=== PATIENT | female | born 1995 | race Caucasian/White ===

== ENCOUNTER 2016-09-28 18:46 | Emergency (ER) | payer OTHER ==
[2016-09-28 19:24] VITALS: BP 111/79; PULSE 84; RESP 16; TEMP 98.4
--- NOTE | 2016-09-28 20:09 | ED ---
ENT HPI - General Chief complaint: Dental/Oral Stated complaint: Tooth pain Time Seen by Provider: 09/28/16 19:27 Source: patient, RN notes reviewed, old records reviewed Mode of arrival: ambulatory Limitations: no limitations - History of Present Illness Initial comments: This is a 21 year old female with bilateral lower wisdom tooth and molar pain. Patient reports that she feels like her molars are coming in and the gums are inflammed around them.Denies fever or chills. States she plans to see a dentist. - Related Data Home Medications Medication Instructions Recorded Confirmed Biotin 5 mg PO DAILY 09/28/16 09/28/16 [place]-3 Fatty Acids/Fish Oil [Fish 1 cap PO DAILY 09/28/16 09/28/16 Oil 1,000 mg Capsule] Previous Rx's Medication Instructions Recorded Penicillin V Potassium [Pen Vee K] 500 mg PO QID #28 tab 09/28/16 traMADol HCl [Ultram] 50 mg PO Q6H PRN #15 tab 09/28/16 Allergies Allergy/AdvReac Type Severity Reaction Status Date / Time [place] And Derivatives Allergy Rash/Hives Verified 09/28/16 19:23 Review of Systems ROS Statement: Those systems with pertinent positive or pertinent negative responses have been documented in the HPI. ROS Other: All systems not noted in ROS Statement are negative. Constitutional: Denies: fever, chills Eyes: Denies: eye pain ENT: Reports: dental pain. Denies: throat pain Respiratory: Denies: cough Cardiovascular: Denies: chest pain Genitourinary: Reports: as per HPI. Denies: urgency Musculoskeletal: Denies: back pain Skin: Denies: rash Neurological: Denies: headache Past Medical History Additional Past Medical History / Comment(s): blood disorder, ovarian cysts History of Any Multi-Drug Resistant Organisms: None Reported Past Surgical History: No Surgical Hx Reported Past Psychological History: Anxiety Smoking Status: Current some day smoker Past Alcohol Use History: None Reported Past Drug Use History: Marijuana General Exam - General Exam Comments Initial Comments: Well appearing 21 year old female, no distress. Limitations: no limitations General appearance: alert, in no apparent distress Head exam: Present: atraumatic, normocephalic, normal inspection Eye exam: Present: normal appearance, PERRL, EOMI. Absent: scleral icterus, conjunctival injection, periorbital swelling ENT exam: Present: normal exam, mucous membranes moist, other (infammed gums around both lower wisdome teeth. ) Neck exam: Present: normal inspection. Absent: tenderness, meningismus, lymphadenopathy Respiratory exam: Present: normal lung sounds bilaterally. Absent: respiratory distress, wheezes, rales, rhonchi, stridor Cardiovascular Exam: Present: regular rate, normal rhythm, normal heart sounds. Absent: systolic murmur, diastolic murmur, rubs, gallop, clicks Neurological exam: Present: alert, oriented X3, CN II-XII intact Psychiatric exam: Present: normal affect, normal mood Skin exam: Present: warm, dry, intact, normal color. Absent: rash Course Vital Signs 09/28/16 19:21 Temperature 98.4 F Pulse Rate 84 Respiratory 16 Rate Blood Pressure 111/79 O2 Sat by Pulse 100 Oximetry Medical Decision Making - Medical Decision Making This is a 21 year old female with bilateral lower wisdom tooth and molar pain. Patient reports that she feels like her molars are coming in and the gums are inflammed around them.Denies fever or chills. States she plans to see a dentist. Patient does have area of erythema around wisdome teeth. Started on pen vk, and tramadol for pain. Patient given name and number for dentist. Patient understands treatment plan and will comply. Disposition Clinical Impression: Pain, dental Disposition: HOME SELF-CARE Condition: Good Instructions: Toothache (ED) Additional Instructions: [facility] [address] [place] [address] [phone] (existing clients only) For new clients: [phone] 1st consult: $50 (includes Xrays) Usually 30% less then private dentist for visits after. [employer] Have to pay $50 for Xrays anmd rest is covered. [phone] Prescriptions: Penicillin V Potassium [Pen Vee K] 500 mg PO QID #28 tab traMADol HCl [Ultram] 50 mg PO Q6H PRN #15 tab PRN Reason: Pain Referrals: Tim Salcedo MD [Primary Care Provider] - 1-2 days Filiberto Peck DDS [STAFF PHYSICIAN] - 1-2 days Time of Disposition: 20:06
== END 2016-09-28 20:18 | disposition home or self-care (01) ==
LOC: EC 18:46
DX: K08.89 Other specified disorders of teeth and supporting structures (principal); F17.200 Nicotine dependence, unspecified, uncomplicated; Z88.8 Allergy status to other drugs, medicaments and biological substances; Z79.899 Other long term (current) drug therapy
CPT/HCPCS: 99282

== ENCOUNTER 2016-11-03 20:12 | Emergency (ER) | payer OTHER ==
[2016-11-03 20:30] VITALS: BP 107/82; PULSE 101; RESP 20; TEMP 98.2
--- NOTE | 2016-11-03 20:37 | ED ---
ENT HPI - General Chief complaint: Dental/Oral Stated complaint: dental pain Time Seen by Provider: 11/03/16 20:28 Source: patient, RN notes reviewed, old records reviewed Mode of arrival: ambulatory - History of Present Illness Initial comments: 21-year-old female presenting the chief complaint of molar pain for the past few months. Patient was seen originally by myself and was put on tramadol and antibiotics. He reports that she's been taking this medication as prescribed. She also saw her primary care doctor in the interim before seeing her [facility] any [facility] until she sees the dental clinic. Patient reports she cannot see the dentist until November where she'll have her molars and wisdom teeth removed. Patient reports that they're coming through and causing some swelling and irritation over the gums. She denies any drainage or fever or swelling of her face. She denies any difficulty opening or closing her mouth or any other symptoms. - Related Data Home Medications Medication Instructions Recorded Confirmed Biotin 5 mg PO DAILY 09/28/16 09/28/16 [place]-3 Fatty Acids/Fish Oil [Fish 1 cap PO DAILY 09/28/16 09/28/16 Oil 1,000 mg Capsule] Previous Rx's Medication Instructions Recorded Penicillin V Potassium [Pen Vee K] 500 mg PO QID #28 tab 09/28/16 traMADol HCl [Ultram] 50 mg PO Q6H PRN #15 tab 09/28/16 traMADol HCl [Ultram] 50 mg PO Q6H PRN #15 tab 11/03/16 Allergies Allergy/AdvReac Type Severity Reaction Status Date / Time [place] And Derivatives Allergy Rash/Hives Verified 09/28/16 19:23 Review of Systems ROS Statement: Those systems with pertinent positive or pertinent negative responses have been documented in the HPI. ROS Other: All systems not noted in ROS Statement are negative. Past Medical History Additional Past Medical History / Comment(s): blood disorder, ovarian cysts History of Any Multi-Drug Resistant Organisms: None Reported Past Surgical History: No Surgical Hx Reported Past Psychological History: Anxiety Smoking Status: Former smoker Past Alcohol Use History: None Reported, Occasional Past Drug Use History: None Reported General Exam - General Exam Comments Initial Comments: 21-year-old female. No acute distress. General appearance: alert, in no apparent distress Head exam: Present: atraumatic, normocephalic, normal inspection Eye exam: Present: normal appearance, PERRL, EOMI. Absent: scleral icterus, conjunctival injection, periorbital swelling ENT exam: Present: normal exam, mucous membranes moist, TM's normal bilaterally. Absent: normal oropharynx (poor dentition. Patient ) Neck exam: Present: normal inspection Respiratory exam: Present: normal lung sounds bilaterally. Absent: respiratory distress, wheezes, rales, rhonchi, stridor Cardiovascular Exam: Present: regular rate, normal rhythm, normal heart sounds. Absent: systolic murmur, diastolic murmur, rubs, gallop, clicks GI/Abdominal exam: Present: soft, normal bowel sounds. Absent: distended, tenderness, guarding, rebound, rigid Extremities exam: Present: normal inspection, full ROM, normal capillary refill. Absent: tenderness, pedal edema, joint swelling, calf tenderness Back exam: Present: normal inspection Neurological exam: Present: alert, oriented X3, CN II-XII intact Psychiatric exam: Present: normal affect, normal mood Skin exam: Present: warm, dry, intact, normal color. Absent: rash Course Vital Signs 11/03/16 20:21 Temperature 98.2 F Pulse Rate 101 H Respiratory 20 Rate Blood Pressure 107/82 O2 Sat by Pulse 100 Oximetry Medical Decision Making - Medical Decision Making 21-year-old female presenting the chief complaint of molar pain for the past few months. Patient was seen originally by myself and was put on tramadol and antibiotics. He reports that she's been taking this medication as prescribed. She also saw her primary care doctor in the interim before seeing her dental surgeon. [facility] primary care will not provide her any pain medication until she sees the dental clinic. Patient will be given a short prescription of tramadol. Discussed putting Orajel to reduce as well as teabags. No signs of infection at this time. Patient advised to follow-up with primary care provider and dental instructions were given. Patient understands treatment plan will comply. Disposition Clinical Impression: Pain, dental Disposition: HOME SELF-CARE Condition: Good Instructions: Toothache (ED) Additional Instructions: Follow-up with dental appointment. Return to the emergency department if any alarming signs or symptoms occur. Prescriptions: traMADol HCl [Ultram] 50 mg PO Q6H PRN #15 tab PRN Reason: Pain Referrals: Tim Salcedo MD [Primary Care Provider] - 1-2 days Time of Disposition: 20:36
== END 2016-11-03 20:52 | disposition home or self-care (01) ==
LOC: EC 20:12
DX: K08.89 Other specified disorders of teeth and supporting structures (principal); Z87.891 Personal history of nicotine dependence; Z79.899 Other long term (current) drug therapy; Z91.048 Other nonmedicinal substance allergy status
CPT/HCPCS: 99283

== ENCOUNTER 2017-02-21 19:14 | Emergency (ER) | payer OTHER ==
[2017-02-21 19:59] VITALS: BP 128/80; PULSE 100; RESP 18; TEMP 97.5
--- NOTE | 2017-02-21 20:14 | ED ---
ENT HPI - General Chief complaint: Dental/Oral Stated complaint: DENTAL PAIN Time Seen by Provider: 02/21/17 19:54 Source: patient, RN notes reviewed Mode of arrival: ambulatory Limitations: no limitations - History of Present Illness Initial comments: This is a 21-year-old female who presents to the emergency department with request for refill of medication. Patient states that she has been taking Ultram for dental pain as her wisdom teeth have been coming in. She states that she has poor medical insurance but was able to find oral surgeon to remove her wisdom teeth. She states that in 2 weeks she has a consultation with oral surgery. She states that she is in a significant amount of pain and is experiencing bleeding from the gums where teeth are coming in. Denies fever, chills, chest pain, shortness of breath, abdominal pain, nausea or vomiting, constipation or diarrhea, dysuria or hematuria, numbness or tingling, headache or vision changes. - Related Data Home Medications Medication Instructions Recorded Confirmed Biotin 5 mg PO DAILY 09/28/16 09/28/16 [place]-3 Fatty Acids/Fish Oil [Fish 1 cap PO DAILY 09/28/16 09/28/16 Oil 1,000 mg Capsule] Previous Rx's Medication Instructions Recorded Penicillin V Potassium [Pen Vee K] 500 mg PO QID #28 tab 09/28/16 traMADol HCl [Ultram] 50 mg PO Q6H PRN #15 tab 09/28/16 traMADol HCl [Ultram] 50 mg PO Q6H PRN #15 tab 11/03/16 traMADol HCL [Ultram] 50 mg PO Q4HR PRN #30 tab 02/21/17 Allergies Allergy/AdvReac Type Severity Reaction Status Date / Time [place] And Derivatives Allergy Rash/Hives Verified 02/21/17 19:58 Review of Systems ROS Statement: Those systems with pertinent positive or pertinent negative responses have been documented in the HPI. ROS Other: All systems not noted in ROS Statement are negative. Past Medical History Additional Past Medical History / Comment(s): blood disorder, ovarian cysts History of Any Multi-Drug Resistant Organisms: None Reported Past Surgical History: No Surgical Hx Reported Past Psychological History: Anxiety Smoking Status: Former smoker Past Alcohol Use History: None Reported, Occasional Past Drug Use History: None Reported General Exam - General Exam Comments Initial Comments: General: Awake and alert, well-developed; in no apparent distress. pleasant and cooperative. HEENT: Head atraumatic, normocephalic. Pupils are equal, round and reactive to light. Extraocular movements intact. Oropharynx moist without erythema or exudate. Evidence of wisdom teeth protruding. Neck: Supple. Normal ROM. No adenopathy. Cardiovascular: Regular rate and rhythm. No murmurs, rubs or gallops. Chest symmetrical. Respiratory: Lungs clear to auscultation bilaterally. No wheezes, rales or rhonchi. Normal respiratory effort with no use of accessory muscles. Skin: [place], warm and dry without rashes or lesions. Neurological: Alert and oriented x3. CN II-XII grossly intact. Speech is fluent and answers are appropriate. No focal neuro deficits. Psychiatric: Normal mood and affect. No overt signs of depression or anxiety noted. Limitations: no limitations Course Vital Signs 02/21/17 19:56 Temperature 97.5 F L Pulse Rate 100 Respiratory 18 Rate Blood Pressure 128/80 O2 Sat by Pulse 100 Oximetry Medical Decision Making - Medical Decision Making This is a 21-year-old female who presents with request for medication refill. She's been taking Ultram 50 mg twice a day for pain until she is able to follow- up with an oral surgeon for removal of wisdom teeth. She'll be discharged home with a prescription to last her the next couple of weeks until she is able to follow-up. Patient is in agreement and voices understanding. all questions answered. Disposition Clinical Impression: Encounter for medication refill Disposition: HOME SELF-CARE Condition: Good Instructions: Toothache (ED) Additional Instructions: Please take medications as prescribed. Please follow up with primary care provider within 1-2 days. Return to emergency department if symptoms should worsen or any concerns arise. Prescriptions: traMADol HCL [Ultram] 50 mg PO Q4HR PRN #30 tab PRN Reason: Pain Referrals: Tim Salcedo MD [Primary Care Provider] - 1-2 days Time of Disposition: 20:13
== END 2017-02-21 20:18 | disposition home or self-care (01) ==
LOC: EC 19:14
DX: Z76.0 Encounter for issue of repeat prescription (principal); K08.89 Other specified disorders of teeth and supporting structures; Z87.891 Personal history of nicotine dependence; Z79.899 Other long term (current) drug therapy; Z91.018 Allergy to other foods
CPT/HCPCS: 99282

== ENCOUNTER 2017-03-12 20:08 | Emergency (ER) | payer OTHER ==
[2017-03-12] MEDS ORDERED: ALBUTEROL NEBULIZED 2.5 MG/3 ML INHALATION STA (20:19)
[2017-03-12 20:29] VITALS: BP 126/84; PULSE 70; RESP 16; TEMP 97.6
--- NOTE | 2017-03-12 20:44 | ED ---
ENT HPI - General Chief complaint: Dental/Oral Stated complaint: Dental Pain Time Seen by Provider: 03/12/17 20:18 Source: patient Mode of arrival: ambulatory Limitations: no limitations - History of Present Illness Initial comments: Patient is a 21-year-old female presenting to the emergency department with chief complaint of toothache to the wisdom tooth #32 and wisdom tooth #17. Patient is currently taking Ultram for pain relief which she states is the only thing working. Patient has tried Tylenol and Motrin without relief. Patient states her toothache is exacerbated with eating. Patient complains of intermittent bleeding gums. Patient states she had an appointment with an oral surgeon in [place] last week only to find out he didn't take her insurance. Patient states is in the process of transitioning between primary care physicians. Patient denies chills, fevers, nausea, vomiting, gum swelling , facial swelling, trismus, earache, shortness of breath, chest pain, or abdominal pain. - Related Data Home Medications Medication Instructions Recorded Confirmed Biotin 5 mg PO DAILY 09/28/16 09/28/[address] [place]-3 Fatty Acids/Fish Oil [Fish 1 cap PO DAILY 09/28/16 09/28/16 Oil 1,000 mg Capsule] Previous Rx's Medication Instructions Recorded Penicillin V Potassium [Pen Vee K] 500 mg PO QID #28 tab 09/28/16 traMADol HCl [Ultram] 50 mg PO Q6H PRN #15 tab 09/28/16 traMADol HCl [Ultram] 50 mg PO Q6H PRN #15 tab 11/03/16 traMADol HCL [Ultram] 50 mg PO Q4HR PRN #30 tab 02/21/17 traMADol HCL [Ultram] 50 mg PO Q12H PRN #20 tab 03/12/17 Allergies Allergy/AdvReac Type Severity Reaction Status Date / Time [place] And Derivatives Allergy Rash/Hives Verified 03/12/17 20:15 Review of Systems ROS Statement: Those systems with pertinent positive or pertinent negative responses have been documented in the HPI. ROS Other: All systems not noted in ROS Statement are negative. Past Medical History Additional Past Medical History / Comment(s): blood disorder, ovarian cysts, cervical pre-cancer cells History of Any Multi-Drug Resistant Organisms: None Reported Past Surgical History: No Surgical Hx Reported Past Psychological History: Anxiety Smoking Status: Former smoker Past Alcohol Use History: None Reported, Occasional Past Drug Use History: None Reported, Marijuana General Exam Limitations: no limitations General appearance: alert, in no apparent distress Head exam: Present: atraumatic, normocephalic, normal inspection Eye exam: Present: normal appearance ENT exam: Present: mucous membranes moist, TM's normal bilaterally, normal external ear exam Expanded Ear exam: Present: normal external inspection Mouth exam: Present: normal external inspection. Absent: drooling, trismus, muffled voice, tongue normal, tongue elevation Teeth exam: Present: dental tenderness # (Tooth #32 and tooth #17), other (No evidence of swollen gums). Absent: gingival enlargement Throat exam: normal inspection. negative: tonsillar erythema, tonsillomegaly, tonsillar exudate, R peritonsillar mass, L peritonsillar mass Neck exam: Present: normal inspection, full ROM. Absent: tenderness, meningismus, lymphadenopathy Respiratory exam: Present: normal lung sounds bilaterally. Absent: respiratory distress, wheezes, rales, rhonchi, stridor, chest wall tenderness Cardiovascular Exam: Present: regular rate, normal rhythm, normal heart sounds. Absent: systolic murmur GI/Abdominal exam: Present: soft, normal bowel sounds. Absent: distended, tenderness Extremities exam: Present: normal inspection, normal capillary refill. Absent: full ROM, tenderness Neurological exam: Present: alert, oriented X3, CN II-XII intact, normal gait. Absent: motor sensory deficit Psychiatric exam: Present: normal affect, normal mood. Absent: anxious Skin exam: Present: warm, dry, intact, normal color Course Vital Signs 03/12/17 20:15 Temperature 97.6 F Pulse Rate 70 Respiratory 16 Rate Blood Pressure 126/84 O2 Sat by Pulse 100 Oximetry Medical Decision Making - Medical Decision Making Toothache without evidence of dental infection. Patient provided with refill on tramadol and instructed to follow-up at the dental clinic. Patient is aware that the emergency department will no longer be able to refill tramadol and she needs to establish a primary care provider for further refills. Patient agrees with treatment plan. Patient instructed to return to the emergency department with any new or worsening symptoms. Disposition Clinical Impression: Toothache Disposition: HOME SELF-CARE Condition: Good Instructions: Toothache (ED) Additional Instructions: Continue Ultram twice daily as needed for pain. Continue heat or cold for pain as needed two. Please follow-up with dental clinic in next 48-72 hours. Follow -up with primary care provider as directed. Please return to the emergency department with any new or worsening symptoms. Prescriptions: traMADol HCL [Ultram] 50 mg PO Q12H PRN #20 tab PRN Reason: Pain Referrals: Tim Salcedo MD [Primary Care Provider] - 1-2 days Time of Disposition: 20:44
== END 2017-03-12 20:50 | disposition home or self-care (01) ==
LOC: EC 20:08
DX: K08.89 Other specified disorders of teeth and supporting structures (principal); Z79.899 Other long term (current) drug therapy; Z91.018 Allergy to other foods; Z87.891 Personal history of nicotine dependence
CPT/HCPCS: 99282

== ENCOUNTER 2017-07-12 18:30 | Emergency (ER) | payer OTHER ==
[2017-07-12 19:22] VITALS: BP 111/76; PULSE 78; RESP 18; TEMP 97.9
--- NOTE | 2017-07-12 19:40 | ED ---
Upper Extremity HPI - General Chief Complaint: Extremity Injury, Upper Stated Complaint: Arm/hand/shoulder pain Time Seen by Provider: 07/12/17 19:27 Source: patient Mode of arrival: ambulatory Limitations: no limitations - History of Present Illness Initial Comments: This patient is a 21-year-old female presents emergency room states she'll complain of right arm pain for 2 weeks. She reports having this pain and is worse with her working. 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 She is right-handed. Denies any coolness to the extremity. She she's had no falls or trauma to the arm. She states the pain radiate from her right shoulder down her fingertips occasionally. She states that she has full range of motion in her extremities.Patient denies any recent fever, chills, shortness of breath, chest pain, back pain, abdominal pain, nausea vomiting, numbness or tingling, dysuria or hematuria, constipation or diarrhea, headaches or visual changes, or any other current symptoms - Related Data Previous Rx's Medication Instructions Recorded Cyclobenzaprine [Flexeril] 10 mg PO TID #12 tab 07/12/17 Dexamethasone 0.75 mg PO DAILY #12 tab 07/12/17 Ketorolac [Toradol] 10 mg PO Q6HR #12 tab 07/12/17 Allergies Allergy/AdvReac Type Severity Reaction Status Date / Time [place] And Derivatives Allergy Rash/Hives Verified 07/12/17 19:28 Review of Systems ROS Statement: Those systems with pertinent positive or pertinent negative responses have been documented in the HPI. ROS Other: All systems not noted in ROS Statement are negative. Past Medical History Additional Past Medical History / Comment(s): blood disorder, ovarian cysts History of Any Multi-Drug Resistant Organisms: None Reported Past Surgical History: No Surgical Hx Reported Additional Past Surgical History / Comment(s): wisdom teeth Past Psychological History: Anxiety Smoking Status: Never smoker Past Alcohol Use History: Occasional Past Drug Use History: None Reported General Exam - General Exam Comments Initial Comments: She is a 21-year-old female. No distress. Limitations: no limitations General appearance: alert, in no apparent distress Head exam: Present: atraumatic, normocephalic, normal inspection Eye exam: Present: normal appearance, PERRL, EOMI. Absent: scleral icterus, conjunctival injection, periorbital swelling ENT exam: Present: normal exam Neck exam: Present: normal inspection. Absent: tenderness, meningismus, lymphadenopathy Respiratory exam: Present: normal lung sounds bilaterally. Absent: respiratory distress, wheezes, rales, rhonchi, stridor Cardiovascular Exam: Present: regular rate, normal rhythm, normal heart sounds. Absent: systolic murmur, diastolic murmur, rubs, gallop, clicks GI/Abdominal exam: Present: soft, normal bowel sounds. Absent: distended, tenderness, guarding, rebound, rigid Extremities exam: Present: normal inspection, full ROM, normal capillary refill. Absent: tenderness, pedal edema, joint swelling, calf tenderness Right Shoulder Exam: Present: normal inspection, tenderness (Tenderness over the insertion of biceps tendon.). Absent: full ROM (Patient has limited posterior rotation of the shoulder with Apley scratch test.), swelling, abrasion, laceration, ecchymosis, deformity Upper Arm exam: Present: normal inspection, full ROM Elbow exam: Present: normal inspection, full ROM Forearm Wrist exam: Present: normal inspection, full ROM Hand Wrist exam: Present: normal inspection, full ROM Neuro motor exam: Present: wrist extension intact, thumb opposition intact, thumb IP flexion intact, thumb adduction intact, fingers 2-5 abduction intact Back exam: Present: normal inspection Neurological exam: Present: alert, oriented X3, CN II-XII intact Psychiatric exam: Present: normal affect, normal mood Skin exam: Present: warm, dry, intact, normal color. Absent: rash Course Vital Signs 07/12/17 19:19 Temperature 97.9 F Pulse Rate 78 Respiratory 18 Rate Blood Pressure 111/76 O2 Sat by Pulse 100 Oximetry Medical Decision Making - Medical Decision Making This patient is wearing a female chief complaint of right arm pain. She reports that the source of the past 2 weeks. 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 She is tender over the head of the biceps. The patient has a biceps tendinitis related to her pain. It is not getting any better with her continuing to move the arm while at work. He states that she needs to ice and take anti- inflammatory medicine. Discussed appropriate follow-up with orthopedic. Discussed that she does not need any imaging studies at this time and she has full range of motion, no trauma or bruising or any other abnormality's arm. She 'll be discharged with anti-inflammatory medication. Discussed follow-up with PCP in orthopedic. All questions were answered and return parameters were discussed. Disposition Clinical Impression: Right arm pain, Biceps tendinitis of left upper extremity Disposition: HOME SELF-CARE Condition: Good Instructions: Arm Pain (ED) Additional Instructions: Patient is to rest, ice, and elevate the arm. Patient should also apply icy hot patches. Take anti-inflammatory medications as prescribed. Return to emergency department if any alarming signs or symptoms occur. Follow up with orthopedic if symptoms are continuing to persist. Prescriptions: Cyclobenzaprine [Flexeril] 10 mg PO TID #12 tab Dexamethasone 0.75 mg PO DAILY #12 tab Ketorolac [Toradol] 10 mg PO Q6HR #12 tab Referrals: Tim Salcedo MD [Primary Care Provider] - 1-2 days Time of Disposition: 19:36
== END 2017-07-12 19:49 | disposition home or self-care (01) ==
LOC: EC 18:30
DX: M75.21 Bicipital tendinitis, right shoulder (principal); Z91.018 Allergy to other foods
CPT/HCPCS: 99283

== ENCOUNTER 2017-10-05 18:26 | Emergency (ER) | payer OTHER ==
[2017-10-05 20:18] LABS: Appearance,Urine Clear (Clear); Bilirubin,Urine Negative (Negative); Blood,Urine Negative (Negative); Color,Urine Yellow; Glucose,Urine (UA) Negative (Negative); Ketones,Urine Negative (Negative); Leukocyte Esterase,Urine Negative (Negative); Mucus,Urine Occasional /hpf; Nitrite,Urine Negative (Negative); Protein,Urine 1+ (Negative); RBC,Urine 1 /hpf (0-5); Specific Gravity,Urine 1.023 (1.001-1.035); Squamous Epithelial Cell,Urine <1 /hpf (0-4); WBC,Urine 1 /hpf (0-5)
[2017-10-05] MEDS ORDERED: traMADol 50 MG STARTER PACK 3 TAB BTL PO STA (20:33)
--- NOTE | 2017-10-05 20:33 | ED ---
General Adult HPI - General Chief complaint: Recheck/Abnormal Lab/Rx Stated complaint: HSP FLARE Time Seen by Provider: 10/05/17 19:25 Source: patient Mode of arrival: wheelchair Limitations: no limitations - History of Present Illness Initial comments: 22-year-old female patient presents to the emergency department today for evaluation of left knee pain and bilateral foot pain. 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 Patient states that generally involves joint pain and bruising. Patient states she has bruising to her bilateral feet without known injury. Patient states that she works on her feet and does have increased pain related to this as well. Patient is requesting tramadol for her pain symptoms. States that she does not currently have a primary care physician and has been told that she needs a follow-up with the animal stunner but she has not yet done so. She denies any fevers or chills. Denies any recent illness. Denies any flank pain , abdominal pain, nausea, or vomiting. Patient denies any recent rash, shortness breath, chest pain, diarrhea, constipation, back pain, numbness, tingling, dizziness, weakness, hematuria, dysuria, urinary urgency, urinary frequency, headache, visual changes, or any other complaints. - Related Data Home Medications Medication Instructions Recorded Confirmed Multivitamins, Thera [Multivitamin 1 tab PO DAILY 10/05/17 10/05/17 (formulary)] [place]-3 Fatty Acids/Fish Oil [Fish 1 cap PO DAILY 10/05/17 10/05/17 Oil 1,000 mg Softgel] Previous Rx's Medication Instructions Recorded predniSONE 50 mg PO DAILY #5 tab 10/05/17 Allergies Allergy/AdvReac Type Severity Reaction Status Date / Time [place] And Derivatives Allergy Rash/Hives Verified 10/05/17 19:00 Review of Systems ROS Statement: Those systems with pertinent positive or pertinent negative responses have been documented in the HPI. ROS Other: All systems not noted in ROS Statement are negative. Past Medical History Additional Past Medical History / Comment(s): blood disorder, ovarian cysts History of Any Multi-Drug Resistant Organisms: None Reported Past Surgical History: No Surgical Hx Reported Additional Past Surgical History / Comment(s): wisdom teeth Past Psychological History: Anxiety Smoking Status: Current some day smoker Past Alcohol Use History: Occasional, Rare Past Drug Use History: None Reported General Exam Limitations: no limitations General appearance: alert, in no apparent distress, other (This is a well- developed, well-nourished adult female patient in no acute distress. Vital signs upon presentation are temperature 98.7F, pulse 117, respirations 18, blood pressure 113/82, ) Eye exam: Present: normal appearance, PERRL, EOMI. Absent: scleral icterus, conjunctival injection, periorbital swelling ENT exam: Present: normal exam, normal oropharynx, mucous membranes moist Respiratory exam: Present: normal lung sounds bilaterally. Absent: respiratory distress, wheezes, rales, rhonchi, stridor Cardiovascular Exam: Present: regular rate, normal rhythm, normal heart sounds. Absent: systolic murmur, diastolic murmur, rubs, gallop, clicks GI/Abdominal exam: Present: soft, normal bowel sounds. Absent: distended, tenderness, guarding, rebound, rigid Extremities exam: Present: normal inspection, full ROM, normal capillary refill , other (Skin to bilateral lower actually is pink, warm, and dry. Cap refills less than 3 seconds. There are 2 tiny areas of bruising noted to the medial aspect of the bilateral heels. Pedal and posttibial pulses are 2+ and equal bilaterally. No evidence of rash.). Absent: tenderness, pedal edema, joint swelling, calf tenderness Back exam: Present: normal inspection. Absent: CVA tenderness (R), CVA tenderness (L) Neurological exam: Present: alert, oriented X3, CN II-XII intact Psychiatric exam: Present: normal affect, normal mood Skin exam: Present: warm, dry, intact, normal color. Absent: rash Course Vital Signs 10/05/17 18:56 Temperature 98.7 F Pulse Rate 117 H Respiratory 18 Rate Blood Pressure 115/82 Medical Decision Making - Medical Decision Making 22-year-old female patient presented to the emergency department today for complaints of Henoch-Schnlein purpura flareup. Patient noticed bruising on her bilateral feet without any injury as well as left knee pain and "swelling". Patient states that she gets these flareups approximately every 6 months. States usually Ultram works the best for her pain. Urinalysis was obtained and showed 1+ protein. Negative hCG. Did discuss significance of protein in the urine. She is instructed to follow-up with the primary care physician for recheck as soon as possible. She will be given a short course of steroids for possible HSP flare. She'll be given a starter pack of Ultram for pain symptoms she is instructed to use these sparingly. Return parameters discussed in detail. She verbalizes understanding and agrees with this plan. - Lab Data Lab Results 10/05/17 10/05/17 Range/Units 20:00 20:00 Urine Color Yellow Urine Appearance Clear (Clear) Urine pH 6.0 (5.0-8.0) Ur Specific [place] 1.023 (1.001-1.035) Urine Protein 1+ H (Negative) Urine Glucose (UA) Negative (Negative) Urine Ketones Negative (Negative) Urine Blood Negative (Negative) Urine Nitrite Negative (Negative) Urine Bilirubin Negative (Negative) Urine Urobilinogen 4.0 (<2.0) mg/dL Ur Leukocyte Esterase Negative (Negative) Urine RBC 1 (0-5) /hpf Urine WBC 1 (0-5) /hpf Ur Squamous Epith Cells <1 (0-4) /hpf Urine Mucus Occasional H (None) /hpf Urine HCG, Qual Not Detected (Not Detectd) Disposition Clinical Impression: Joint pain Disposition: HOME SELF-CARE Condition: Good Instructions: Arthralgia (ED) Additional Instructions: Take medications as directed. Follow-up with your primary care physician as soon as possible. Follow-up with dermatology as directed. Return here immediately for any new, worsening, or concerning symptoms. Prescriptions: predniSONE 50 mg PO DAILY #5 tab Is patient prescribed a controlled substance at d/c from ED?: No Referrals: None,Stated [Primary Care Provider] - 1-2 days Time of Disposition: 20:33
[2017-10-05 20:53] VITALS: BP 118/65; PULSE 104; RESP 19; TEMP 98.3
== END 2017-10-05 20:55 | disposition home or self-care (01) ==
LOC: EC 18:26
DX: M25.562 Pain in left knee (principal); M79.671 Pain in right foot; M79.672 Pain in left foot; F17.200 Nicotine dependence, unspecified, uncomplicated; D69.0 Allergic purpura
CPT/HCPCS: 81001; 81025; 99283

== ENCOUNTER 2019-07-22 13:58 | Outpatient (CLI) | payer OTHER ==
[2019-07-22 14:32] LABS: Glucose,Whole Blood 104 mg/dL (75-99)
[2019-07-22 14:56] LABS: Appearance,Urine Clear (Clear); Bilirubin,Urine Negative (Negative); Blood,Urine Negative (Negative); Color,Urine Light Yellow; Glucose,Urine (UA) Negative (Negative); Ketones,Urine Negative (Negative); Leukocyte Esterase,Urine Negative (Negative); Nitrite,Urine Negative (Negative); Protein,Urine Negative (Negative); Specific Gravity,Urine 1.012 (1.001-1.035); Urobilinogen,Urine <2.0 mg/dL (<2.0)
[2019-07-22 15:16] LABS: Amphetamine Screen,Urine Not Detected (NotDetected); Barbiturate Screen,Urine Not Detected (NotDetected); Benzodiazepines Screen,Urine Detected (NotDetected); Cocaine Screen,Urine Not Detected (NotDetected); Methadone Screen, Urine Not Detected (NotDetected); Opiate Screen,Urine Not Detected (NotDetected); Oxycodone Screen, Urine Not Detected (NotDetected); Phencyclidine Screen,Urine Not Detected (NotDetected); Tricyclic Antidepressant,Urine Not Detected (NotDetected); Urn Cannabinoid Scrn Detected (NotDetected)
--- NOTE | 2019-07-22 15:30 | US ---
EXAMINATION TYPE: US OB >= 14 wk fetus DATE OF EXAM: 07/22/2019 COMPARISON: None CLINICAL HISTORY: US for dates Unknown dates, pt states feeling possible leaking fluid TECHNIQUE: Transabdominal (TA) GESTATIONAL AGE / DATING Physician Established: Not yet established Dates by LMP: Unknown Dates by First Scan: No prior Dates by Current Scan: (30 weeks/3 days) EDC: 09/27/2019 SURVEY IUP: Single PLACENTA: Posterior PREVIA: No Previa SUHAIL: 12.5 cm Normal CERVICAL LENGTH (transabdominal: norm > 3.0cm): 2.4 cm TV not needed at time of exam per RN in L&D BIOMETRY PRESENTATION: Vertex BPD: 7.7 cm 31 weeks / 0 days HC: 28.9 cm 31 weeks / 5 days AC: 26.0 cm 30 weeks / 1 days FL: 5.8 cm 30 weeks / 3 days ESTIMATED WEIGHT IN GRAMS: 1580 grams ESTIMATED WEIGHT IN LBS/OZ: 3 lbs. 8 oz. WEIGHT PERCENTAGE BASED ON HC/AC: 1.1 Normal FL/AC: 22 Normal HEART RATE: 159 bpm RHYTHM: Normal Single, viable IUP, TA cervical length short, results given to L&D at time of exam IMPRESSION: Cervix is lower limit of normal length. Otherwise negative exam.
[2019-07-22 15:32] VITALS: BP 127/83; PULSE 102; RESP 18; TEMP 97.6
[2019-07-22 15:41] LABS: Basophils % (A) 0 %; Eosinophils # (A) 0.2 k/uL (0-0.7); Eosinophils % (A) 1 %; HCT 34.8 % (34.0-46.0); HGB 11.9 gm/dL (11.4-16.0); Lymphocytes # (A) 2.3 k/uL (1.0-4.8); Lymphocytes % (A) 16 %; MCH 31.5 pg (25.0-35.0); MCHC 34.3 g/dL (31.0-37.0); MCV 91.8 fL (80.0-100.0); Mean Platelet Volume 7.8; Monocytes # (A) 0.8 k/uL (0-1.0); Monocytes % (A) 6 %; Neutrophils # (A) 10.5 k/uL (1.3-7.7); Neutrophils % (A) 75 %; Platelet Count 235 k/uL (150-450); RBC 3.79 m/uL (3.80-5.40); RDW 12.7 % (11.5-15.5)
[2019-07-23 09:55] LABS: Hepatitis B Surface Antigen Non-Reactive (Non-Reactive)
[2019-07-23 12:50] LABS: HIV 2 AB Non-Reactive (Non-Reactive); HIV AB P24 Non-Reactive (Non-Reactive); HIV P24 AG Non-Reactive (Non-Reactive)
--- NOTE | 2019-08-05 12:06 | P.MSEPDOC ---
Presenting Problems - Arrival Data Date of Arrival on Unit: 07/22/19 Time of Arrival on Unit: 15:27 Mode of Transport: Portable - Complaint OB-Reason for Admission/Chief Complaint: Rule Out SROM Comment: leaking clear fluid at [address] Mejia. Referred to high risk for maternal bleeding disorder, pt has not gone. No care since other than 1 US at [facility] 1-2 months ago. Admits + marijuana use, + smoker. Medical History - Information : 1 Para: 0 Term: 0 : 0 Abortions: Spontaneous or Elective: 0 Number of Living Children: 0 - Gestational Age Gestational Age by ANSON (wks/days): 30 Weeks and 3 Days - History Complications: No Care Review of Systems - Review of Systems Constitutional: No problems Breast: No problems ENT: No problems Cardiovascular: No problems Respiratory: No problems Gastrointestinal: No problems Genitourinary: No problems Musculoskeletal: No problems Neurological: No problems Skin: No problems Comment: blood glucose 104 today in triage Vital Signs - Temperature Temperature: 97.6 F Temperature Source: Temporal Artery Scan - Pulse Right Sitting Brachial Pulse Rate: 102 Pulse Assessment Method: Automatic Cuff - Respirations Respiratory Rate: 18 Oxygen Delivery Method: Room Air O2 Sat by Pulse Oximetry: 100 - Blood Pressure Right Arm Sitting Blood Pressure: 127/83 Blood Pressure Mean: 97 Blood Pressure Source: Automatic Cuff Medical Screen Scoring (Pre) - Cervical Exam Dilation: 0 cm = 0 - Uterine Contractions Frequency: > 5 minutes apart = 1 Duration: N/A Intensity: N/A - Maternal Vital Signs Maternal Temperature: N/A Maternal Blood Pressure: N/A Signs of Preeclampsia: N/A Maternal Respirations: N/A - Maternal Trauma Maternal Trauma: N/A - Assessment - Baby A Baseline FHR: 130 Heart Rate - NICHD Category: Category I (Normal) = 0 NST: Reactive Position: N/A Station: N/A - Total Score - Baby A Total Score - Baby A: 1 - Total Score - Baby B Total Score - Baby B: 1 - Total Score - Baby C Total Score - Baby C: 1 - Level of Risk - Baby A Level of Risk - Baby A: Low (0-5) - Level of Risk - Baby B Level of Risk - Baby B: Low (0-5) - Level of Risk - Baby C Level of Risk - Baby C: Low (0-5) - Pain Assessment Pain Scale Used: Numeric (1 - 10) Pain Intensity: 0 Pain Management Goal: 3 Physician Notification (Pre) - Physician Notified Physician Notified Date: 07/22/19 Physician Notified Time: 15:25 New Order Received: Yes - Notification Comment Comment: US for gestational age assessment completed - 29/07, cephalic, posterior plaenta. Cervix closed and thick on exam, bloodwork drawn and pending. DC home. Disposition - Disposition OB Disposition: Discharge to home Discharge Date: 07/22/19 Discharge Time: 15:26 I agree with the RN Medical Screening Exam: Yes Risk & Benefit of care provided described in d/c instruction: Yes Diagnosis: RELATED CONDITIONS, UNSPECIFIED, THIRD TRIMESTER
== END 2019-07-22 15:30 | disposition home or self-care (01) ==
LOC: FBPOP 13:58
PROVIDERS: ATTEND Obstetrics & Gynecology
DX: O26.93 Pregnancy related conditions, unspecified, third trimester (principal); Z3A.30 30 weeks gestation of pregnancy
CPT/HCPCS: 59025; 86900; 86901; 86762; 82947; 85025; 86850; 87340; 81003; 86780; 80306; 87390; 76805; G0463; 99213

== ENCOUNTER 2019-09-12 11:06 | Inpatient (IN) | payer OTHER ==
--- NOTE | 2019-09-12 13:44 | P.HPOB ---
History of Present Illness H&P Date: 09/12/19 Chief Complaint: Strong uterine contractions for several hours This is a 23-year-old white female 1 para 0 EDC 09/27/2019 established by 30 week ultrasound here, no care. Patient presents with strong regular uterine contractions over the past several hours. She rates them on a scale of 10-10. She denies fluid leakage or vaginal bleeding. Fetus is been active throughout the . Past medical history is significant for some unknown blood disorder patient had as a child, she states she outgrew it as a adult. She is uncertain of the name or etiology of this disorder. Past surgical history is negative. ALLERGIES citrus to which reports a rash, NO KNOWN DRUG ALLERGIES. Current medications vitamins daily. Social history patient is single, she is a tobacco smoker, she denies alcohol or drug use. Family history is essentially noncontributory. On exam she is 5 foot 3 inches, 140 pounds, blood pressure 116/70, pulse 76. The general physical exam is within normal limits. Patient has one tattoo and no body piercings. The chest is clear in all van. The extremities reveal no edema. Cervix is 4 cm dilated, 80% effaced, -1 station, vertex presentation. Artificial amniorrhexis reveals clear fluid. heart rate is consistent with reactive NST, frequent accelerations. Internal scalp lead is applied. Impression: 37-6/7 weeks intrauterine by second trimester ultrasound. Active labor. No care. Plan: I asked the patient to obtain from her mother the name of this blood disorder for my understanding and knowledge. Penicillin G prophylaxis per hospital protocol. Oxytocin augmentation if needed. environmental services floor tech consult. Anticipate normal spontaneous vaginal delivery. Urine drug screen. Review of Systems Constitutional: Reports as per HPI Past Medical History Additional Past Medical History / Comment(s): blood disorder, ovarian cysts History of Any Multi-Drug Resistant Organisms: None Reported Past Surgical History: No Surgical Hx Reported Additional Past Surgical History / Comment(s): wisdom teeth Smoking Status: Current every day smoker Medications and Allergies Home Medications Medication Instructions Recorded Confirmed Type Multivitamins, Thera [Multivitamin 1 tab PO DAILY 10/05/17 09/12/19 History (formulary)] Allergies Allergy/AdvReac Type Severity Reaction Status Date / Time [place] And Derivatives Allergy Rash/Hives Verified 09/12/19 11:20 Exam Intake and Output 05/12/20 05/13/20 05/13/20 22:59 06:59 14:59 Other: Weight 63.503 kg See dictation under HPI please Assessment and Plan Assessment: 37-6/7 weeks intrauterine , early spontaneous labor. No care. All signs otherwise reassuring. Plan: Penicillin G prophylaxis to begin now. Oxytocin augmentation pending progress. Urine drug screen. Obtain history on this unknown bleeding disorder from family. Continue close maternal and surveillance. environmental services floor tech consult. Anticipate normal spontaneous vaginal delivery. Analgesic options reviewed with the patient. Time with Patient: Greater than 30
[2019-09-12] MEDS ORDERED: TERBUTALINE 1 MG/ML VIAL SQ PRN (14:20)
[2019-09-12] MEDS ORDERED: OXYTOCIN 10 UNIT/ML 1 ML VIAL IM PRN (14:20)
[2019-09-12] MEDS ORDERED: METHYLERGONOVINE 0.2 MG/ML 1 ML AMP IM PRN (14:20)
[2019-09-12] MEDS ORDERED: CARBOPROST TROMETHAMINE 250 MCG/ML 1 ML AMP IM PRN (14:20)
[2019-09-12] MEDS ORDERED: LIDOCAINE 0.5% (PF) 5 MG/ML (50 ML SDV) SQ PRN (14:20)
[2019-09-12] MEDS ORDERED: OXYTOCIN 30 UNITS/500 ML NS 30 UNIT in SALINE 1 500ML.BAG IV SCH (14:30)
[2019-09-12] MEDS ORDERED: PENICILLIN G POTASSIUM 5,000,000 UNIT in DEXTROSE 5% IN WATER 100 ML IVPB STA ×2 (14:30)
[2019-09-12] MEDS: LACTATED RINGERS 1,000 ML IV SCH ×2 (14:47→16:04)
[2019-09-12] MEDS ORDERED: BUTORPHANOL 1 MG/ML 1 ML VIAL IV PRN (15:17)
[2019-09-12 15:47] LABS: Appearance,Urine Clear (Clear); Bilirubin,Urine Negative (Negative); Blood,Urine Negative (Negative); Color,Urine Yellow; Glucose,Urine (UA) Negative (Negative); Ketones,Urine Negative (Negative); Leukocyte Esterase,Urine Negative (Negative); Nitrite,Urine Negative (Negative); Protein,Urine Negative (Negative); Specific Gravity,Urine 1.018 (1.001-1.035); Urobilinogen,Urine <2.0 mg/dL (<2.0)
[2019-09-12 15:50] LABS: Basophils % (A) 0 %; Eosinophils # (A) 0.3 k/uL (0-0.7); Eosinophils % (A) 2 %; HCT 39.2 % (34.0-46.0); HGB 13.1 gm/dL (11.4-16.0); Lymphocytes # (A) 2.7 k/uL (1.0-4.8); Lymphocytes % (A) 14 %; MCH 31.3 pg (25.0-35.0); MCHC 33.4 g/dL (31.0-37.0); MCV 93.6 fL (80.0-100.0); Monocytes % (A) 5 %; Neutrophils # (A) 14.6 k/uL (1.3-7.7); Neutrophils % (A) 77 %; Platelet Count 290 k/uL (150-450); RBC 4.18 m/uL (3.80-5.40); RDW 13.5 % (11.5-15.5)
[2019-09-12 15:54] LABS: Amphetamine Screen,Urine Detected (NotDetected); Barbiturate Screen,Urine Not Detected (NotDetected); Benzodiazepines Screen,Urine Not Detected (NotDetected); Cocaine Screen,Urine Not Detected (NotDetected); Methadone Screen, Urine Not Detected (NotDetected); Opiate Screen,Urine Not Detected (NotDetected); Oxycodone Screen, Urine Not Detected (NotDetected); Phencyclidine Screen,Urine Not Detected (NotDetected); Tricyclic Antidepressant,Urine Not Detected (NotDetected); Urn Cannabinoid Scrn Not Detected (NotDetected)
[2019-09-12] MEDS ORDERED: fentaNYL (PF) 50 MCG/ML 5 ML AMP ONE (16:11)
[2019-09-12] MEDS ORDERED: ROPIVACAINE 5MG/ML 20ML VIAL ONE (16:11)
[2019-09-12] MEDS ORDERED: SODIUM CHLORIDE 0.9% 100 ML BAG ONE (16:11)
[2019-09-12 16:14] LABS: INR 0.9 (<1.2); Partial Thromboplastin Time 21.9 sec (22.0-30.0); Prothrombin Time 9.3 sec (9.0-12.0)
[2019-09-12] MEDS ORDERED: PENICILLIN G POTASSIUM 2,500,000 UNIT in DEXTROSE 5% IN WATER 100 ML IVPB SCH ×2 (18:30)
[2019-09-12] MEDS ORDERED: HYDROCORTISONE 2.5% RECTAL CREAM 30 GM TUBE RECTAL PRN (19:54)
[2019-09-12] MEDS ORDERED: diphenhydrAMINE ELIXIR 25 MG/10 ML CUP PO PRN (19:54)
[2019-09-12] MEDS ORDERED: diphenhydrAMINE 50 MG CAP PO PRN (19:54)
[2019-09-12] MEDS ORDERED: diphenhydrAMINE 50 MG/ML 1 ML VIAL IVP PRN ×2 (19:54)
[2019-09-12] MEDS ORDERED: ACETAMINOPHEN TAB 325 MG TAB PO PRN (19:54)
[2019-09-12] MEDS ORDERED: WITCH HAZEL 1 EACH MED..PAD TOPICAL PRN (19:54)
[2019-09-12] MEDS ORDERED: LANOLIN CREAM 5 GM TUBE TOPICAL PRN (19:54)
[2019-09-12] MEDS ORDERED: ZOLPIDEM 5 MG TAB PO PRN (19:54)
[2019-09-12] MEDS ORDERED: diphenhydrAMINE 25 MG CAP PO PRN (19:54)
[2019-09-12] MEDS ORDERED: SIMETHICONE 80 MG CHEWABLE PO PRN (19:54)
[2019-09-12] MEDS ORDERED: BENZOCAINE/MENTHOL SPRAY 1 GM/SPRAY AEROSOL TOPICAL PRN (19:54)
--- NOTE | 2019-09-12 19:54 | P.PROBDLV ---
Vaginal Delivery Note - . Vaginal Delivery Note: This is a 23-year-old white female 1 para 0 EDC 09/27/2019 based on 30 week ultrasound, with no care. Patient presented this afternoon to labor and delivery with strong uterine contractions, illicit in cervical change well being observed in the triage area over the course of 3 hours. She was admitted in early active labor. Penicillin G was given prophylactically due to unknown group B strep status. 2 doses were received. Oxytocin was started and titrated [place] protocol. Epidural was placed per her request. Please see my dictated history and physical for details. It is notable that the urine drug screen came back positive for amphetamines and methamphetamines. Patient progressed well through the first stage of labor and became completely dilated. Perineal body was prepped and draped in usual sterile fashion. 's head delivered occiput anterior and he restituted accordingly. There was no nuchal cord noted. The right or anterior shoulder was delivered from underneath the pubic symphysis at which time the oropharynx, nasopharynx, and external nares were all bulb suctioned. Patient was officially delivered of a liveborn male infant at 1929 hours. The umbilical cord was doubly clamped and ligated, he was handed to waiting nurses for evaluation where scores of 9 and 9 at one and 5 minutes respectively were given. The placenta delivered spontaneously with active management, it was inspected and noted to be intact with trivascular cord at 1931 hours. At this time the perineal body was redraped. Inspection of the cervix, vagina, perineum, periurethral, and perirectal areas revealed a small first-degree l aceration in the inner left labia minora. This was repaired in the usual fashion using Rapide suture, a single [id number] suture placed for good approximation. The fundus is firm and in the midline, symmetric and 18 week size upon completion of delivery. All sponge needle and enhancement counts are correct. Patient is requesting circumcision for her infant son. He weighs 2645 g or 5 lbs. 13 oz. manager managed backup services consult will be obtained.
[2019-09-12] MEDS ORDERED: OXYTOCIN 20 UNITS/1000 ML NS 1,000 ML IV SCH (20:00)
[2019-09-13] MEDS: SENNOSIDES-DOCUSATE SODIUM 1 EACH TAB PO SCH ×3 (03:14→19:44)
[2019-09-13] MEDS: IBUPROFEN 600 MG TAB PO PRN ×2 (08:08→19:44)
--- NOTE | 2019-09-13 08:08 | P.DS ---
Providers Date of admission: 09/12/19 13:29 Expected date of discharge: 09/13/19 Attending physician: Adrianna Pedraza Primary care physician: Stated None Hospital Course: This is a 23-year-old white female 1 para 0 EDC 09/27/2019 37-6/7 weeks' gestation. Patient presented in active spontaneous labor. is remarkable for no care. She did have an ultrasound in our facility at 30 weeks gestation which established her due date. Please see my dictated history and physical for details. Urine drug screen was positive for amphetamines and met amphetamines. Patient went on to deliver vaginally a liveborn male with scores of 9 and 9 at one and 5 minutes respectively. Estimated blood loss was 250 mL, a small first-degree labial laceration was easily repaired. weighed 2645 g or 5 lbs. 13 oz. Patient was treated with penicillin G 2 doses for group B strep prophylaxis, with no known group B strep status. Please see dictated delivery note for details. This morning the patient is doing well. She is voiding, ambulating and passing flatus without difficulty. Vital signs are stable and she is afebrile. Fundus is firm and in the midline, symmetric and 18 week size. Breasts are not en gorged. Perineal body is clean and dry. Patient feels well, has no pain, and is requesting discharge home. She'll follow-up with me in the office in 6 weeks. I reminded her no intercourse, tampons or douching. She will use [id number] Advil or Aleve, or Motrin as needed for pain. I've given her prescription for a double electric breast pump to be used. She will call with any fevers shakes or chills, foul smelling or copious lochia, with the passage of large blood clots, with any pain not alleviated by [id number] products, or indeed with any concerns. Callands infant at this point is not being discharged, due to positive urine drug screen and need for surveillance. Patient Condition at Discharge: Good Plan - Discharge Summary Discharge Rx Participant: No New Discharge Prescriptions: No Action Multivitamins, Thera [Multivitamin (formulary)] 1 tab PO DAILY Discharge Medication List Multivitamins, Thera [Multivitamin (formulary)] 1 tab PO DAILY 06/06/18 [History] Follow up Appointment(s)/Referral(s): Adrianna Pedraza MD [STAFF PHYSICIAN] - 6 Weeks Discharge Disposition: HOME SELF-CARE
[2019-09-14] MEDS: SENNOSIDES-DOCUSATE SODIUM 1 EACH TAB PO SCH (08:59)
[2019-09-14] MEDS: IBUPROFEN 600 MG TAB PO PRN (08:59)
[2019-09-14 09:21] VITALS: BP 112/77; PULSE 96; RESP 20; TEMP 98.4
== END 2019-09-14 11:11 | disposition home or self-care (01) | DRG 807 ==
LOC: FBPOP 11:06 → 4FBP 13:29
PROVIDERS: ADMIT Obstetrics & Gynecology; ATTEND Obstetrics & Gynecology
PROC: 0HQ9XZZ Repair Perineum Skin, External Approach (ICD-10-PCS; principal; 2019-09-12)
PROC: 00HU33Z Insertion of Infusion Device into Spinal Canal, Percutaneous Approach (ICD-10-PCS; principal; 2019-09-12)
PROC: 3E0R3BZ Introduction of Anesthetic Agent into Spinal Canal, Percutaneous Approach (ICD-10-PCS; principal; 2019-09-12)
PROC: 10E0XZZ Delivery of Products of Conception, External Approach (ICD-10-PCS; principal; 2019-09-12)
DX: O99.334 Smoking (tobacco) complicating childbirth (principal); Z37.0 Single live birth; F17.200 Nicotine dependence, unspecified, uncomplicated; O99.62 Diseases of the digestive system complicating childbirth; O34.83 Maternal care for other abnormalities of pelvic organs, third trimester; N83.209 Unspecified ovarian cyst, unspecified side; O70.0 First degree perineal laceration during delivery; O99.324 Drug use complicating childbirth; F15.90 Other stimulant use, unspecified, uncomplicated; Z3A.37 37 weeks gestation of pregnancy; Z91.018 Allergy to other foods
CPT/HCPCS: 59025; 80306; 81003; 85025; 85610; 85730; 86850; 86900; 86901; 99213

== ENCOUNTER 2020-12-18 06:00 | Inpatient (IN) | payer OTHER ==
[2020-12-18] MEDS ORDERED: CARBOPROST TROMETHAMINE 250 MCG/ML 1 ML AMP IM PRN (06:39)
[2020-12-18] MEDS ORDERED: OXYTOCIN 10 UNIT/ML 1 ML VIAL IM PRN (06:39)
[2020-12-18] MEDS ORDERED: METHYLERGONOVINE 0.2 MG/ML 1 ML AMP IM PRN (06:39)
[2020-12-18] MEDS ORDERED: TERBUTALINE 1 MG/ML VIAL SQ PRN (06:39)
[2020-12-18] MEDS ORDERED: LIDOCAINE 0.5% (PF) 5 MG/ML (50 ML SDV) SQ PRN (06:39)
[2020-12-18] MEDS: LACTATED RINGERS 1,000 ML IV SCH ×2 (06:45→11:16)
[2020-12-18] MEDS ORDERED: OXYTOCIN 30 UNITS/500 ML NS 30 UNIT in SALINE 1 500ML.BAG IV SCH (06:45)
[2020-12-18 08:14] LABS: Basophils % (A) 0 %; Eosinophils # (A) 0.3 k/uL (0-0.7); Eosinophils % (A) 2 %; HCT 37.6 % (34.0-46.0); HGB 12.8 gm/dL (11.4-16.0); Lymphocytes # (A) 2.4 k/uL (1.0-4.8); Lymphocytes % (A) 19 %; MCV 94.2 fL (80.0-100.0); Mean Platelet Volume 8.2; Monocytes # (A) 0.6 k/uL (0-1.0); Monocytes % (A) 5 %; Neutrophils % (A) 72 %; Platelet Count 187 k/uL (150-450); RBC 3.99 m/uL (3.80-5.40); RDW 14.7 % (11.5-15.5); WBC 12.6 k/uL (3.8-10.6)
[2020-12-18] MEDS ORDERED: BUTORPHANOL 1 MG/ML 1 ML VIAL IV PRN (09:44)
[2020-12-18] MEDS ORDERED: ROPIVACAINE 5MG/ML 20ML VIAL ONE (10:48)
[2020-12-18] MEDS ORDERED: SODIUM CHLORIDE 0.9% 100 ML BAG ONE (10:48)
[2020-12-18] MEDS ORDERED: fentaNYL (PF) 50 MCG/ML 5 ML AMP ONE (10:48)
--- NOTE | 2020-12-18 16:38 | P.HPOB ---
History of Present Illness H&P Date: 12/18/20 Chief Complaint: Intrauterine at term: Induction of labor Patient is a 25-year-old at 39 weeks gestation who arrives for induction of labor. Her Precis course was, complicated by having some anxiety attacks and nightmares through the middle part of the but those didn't seem to improve as the moving forward. Her pertinent labs included B+ blood type with Rh antibody was negative. Rubella was immune, hepatitis B surface antigen/RPR and HIV were negative as was groupie strep. Initial dilation was 21-2 cm 70% effaced -2 station artificial rupture membranes was performed and clear fluid is noted. Risks of induction were reviewed and all questions were answered for her prior to the induction will plan Pitocin augmentation of labor and she expects use epidural for analgesia. Past Medical History Additional Past Medical History / Comment(s): blood disorder, ovarian cysts History of Any Multi-Drug Resistant Organisms: None Reported Past Surgical History: No Surgical Hx Reported Additional Past Surgical History / Comment(s): wisdom teeth Past Anesthesia/Blood Transfusion Reactions: No Reported Reaction Past Psychological History: Anxiety Smoking Status: Never smoker Past Alcohol Use History: Occasional, Rare Past Drug Use History: Marijuana, Methamphetamine Additional Drug Use History / Comment(s): positive drug screen, pt denies use - Past Family History Father Family Medical History: No Reported History Medications and Allergies Home Medications Medication Instructions Recorded Confirmed Type Multivitamins, Thera [Multivitamin 1 tab PO DAILY 10/05/17 12/18/20 History (formulary)] Allergies Allergy/AdvReac Type Severity Reaction Status Date / Time Pump Back And Derivatives Allergy Rash/Hives Verified 12/18/20 06:38 Exam Osteopathic Statement: *. No significant issues noted on an osteopathic structural exam other than those noted in the History and Physical/Consult. Vital Signs Temp Pulse Resp BP Pulse Ox 12/18/20 07:15 97.2 F L 89 16 118/78 99 Intake and Output 12/18/20 12/18/20 12/18/20 06:59 14:59 22:59 Other: Weight 77.111 kg 77.111 kg - OBG Physical Exam Breast: both: normal (no masses) Abdomen: bowel sounds normal, no diffuse tenderness, no bruit present, no guarding noted, no hepatomegaly, no splenomegaly, no mass Vulva: both: normal Vagina: normal moisture, no discharge Cervix: no lesion, no discharge Uterus: normal size, normal contour Adnexa: both: normal Anus/Rectum: normal perianal skin, no rectal mass, no hemorrhoids, heme negative Results Result Diagrams: 12/18/20 07:44 Abnormal Lab Results - Last 24 Hours (Table) 12/18/20 Range/Units 07:44 WBC 12.6 H (3.8-10.6) k/uL Neutrophils # 9.0 H (1.3-7.7) k/uL
--- NOTE | 2020-12-18 16:40 | P.PROBDLV ---
Vaginal Delivery Note - . Vaginal Delivery Note: Patient progressed to complete and pushing with spontaneous vaginal delivery of a 50 female over an intact perineum. Falling deliver the head anterior posterior shoulders were easily delivered with gentle downward upper traction from right occiput anterior position. Once baby was delivered mouth nares were bulb suctioned and baby was placed on mother's abdomen where the umbilical cord was clamped cut usual fashion. It was noted almost immediately that there was a short umbilical cord and so gentle manipulation was done to make sure that cord was not avulsed. Nursery personnel was present and assumed care. Placenta was then delivered intact Pitocin was added to the IV. scores of 9 and 10 at one and 5 minutes respectively. Weight is pending but both mother and baby appear stable. It is noted that through the latter part of the labor process through the late latent phase and active phase she had continuous variable decelerations with many of her contractions. Baseline was 06/01/1939 and decelerations would often go down into the 90s with return to baseline less than 1 minute. Initially a cord compression was suspected and wall that may be the case is also likely that due to the significant shortness of her cord there was some extension as the baby was coming down into the pelvis resulting in those variable decelerations. Otherwise the heart rate tracings were reactive and had excellent variability.
[2020-12-18] MEDS ORDERED: diphenhydrAMINE 50 MG CAP PO PRN (17:07)
[2020-12-18] MEDS ORDERED: ACETAMINOPHEN TAB 325 MG TAB PO PRN (17:07)
[2020-12-18] MEDS ORDERED: ZOLPIDEM 5 MG TAB PO PRN (17:07)
[2020-12-18] MEDS ORDERED: LANOLIN CREAM 5 GM TUBE TOPICAL PRN (17:07)
[2020-12-18] MEDS ORDERED: SIMETHICONE 80 MG CHEWABLE PO PRN (17:07)
[2020-12-18] MEDS ORDERED: BENZOCAINE/MENTHOL SPRAY 1 GM/SPRAY AEROSOL TOPICAL PRN (17:07)
[2020-12-18] MEDS ORDERED: HYDROCORTISONE 2.5% RECTAL CREAM 30 GM TUBE RECTAL PRN (17:07)
[2020-12-18] MEDS ORDERED: diphenhydrAMINE 50 MG/ML 1 ML VIAL IVP PRN ×2 (17:07)
[2020-12-18] MEDS ORDERED: diphenhydrAMINE 25 MG CAP PO PRN (17:07)
[2020-12-18] MEDS: SENNOSIDES-DOCUSATE SODIUM 1 EACH TAB PO SCH (19:34)
[2020-12-19] MEDS: IBUPROFEN 600 MG TAB PO PRN ×3 (01:23→16:19)
[2020-12-19 06:57] LABS: Basophils # (A) 0.1 k/uL (0-0.2); Basophils % (A) 0 %; Eosinophils # (A) 0.2 k/uL (0-0.7); Eosinophils % (A) 1 %; HCT 34.9 % (34.0-46.0); HGB 12.1 gm/dL (11.4-16.0); Lymphocytes # (A) 2.6 k/uL (1.0-4.8); Lymphocytes % (A) 16 %; MCH 32.1 pg (25.0-35.0); MCHC 34.6 g/dL (31.0-37.0); MCV 92.9 fL (80.0-100.0); Monocytes # (A) 0.9 k/uL (0-1.0); Monocytes % (A) 6 %; Neutrophils # (A) 12.3 k/uL (1.3-7.7); Neutrophils % (A) 75 %; Platelet Count 192 k/uL (150-450); RBC 3.75 m/uL (3.80-5.40); RDW 14.5 % (11.5-15.5); WBC 16.4 k/uL (3.8-10.6)
[2020-12-19] MEDS: SENNOSIDES-DOCUSATE SODIUM 1 EACH TAB PO SCH (08:10)
[2020-12-19 08:46] VITALS: RESP 16
[2020-12-19 17:22] VITALS: BP 107/63; PULSE 85; TEMP 97.3
--- NOTE | 2020-12-24 17:20 | P.DS ---
Providers Date of admission: 12/18/20 06:28 Expected date of discharge: 12/24/20 Attending physician: Arcenio Knott Primary care physician: Stated None Hospital Course: A she did very well . On day 1 she was discharged home in stable and satisfactory condition. All questions were answered for her prior to discharge. Her vital signs are stable and afebrile. Heart regular, lungs clear, extremities without pain. Abdomen soft and uterus was firm below the umbilicus. Lochia was reported be light. Assessment post day 1. Plan discharged home follow up with me in 6 weeks. Patient Condition at Discharge: Good Plan - Discharge Summary New Discharge Prescriptions: New Ibuprofen [Motrin] 600 mg PO Q6HR PRN #30 tab PRN Reason: Mild Pain (Scale 1 To 3) No Action Multivitamins, Thera [Multivitamin (formulary)] 1 tab PO DAILY Discharge Medication List Multivitamins, Thera [Multivitamin (formulary)] 1 tab PO DAILY 10/05/17 [History] Ibuprofen [Motrin] 600 mg PO Q6HR PRN #30 tab 12/19/20 [Rx] Follow up Appointment(s)/Referral(s): Arcenio Knott DO [Doctor of Osteopathic Medicine] - 01/26/21 11:00 am Discharge Disposition: HOME SELF-CARE
== END 2020-12-19 17:45 | disposition home or self-care (01) | DRG 807 ==
LOC: 4FBP 06:28
PROVIDERS: ADMIT Obstetrics & Gynecology; ATTEND Obstetrics & Gynecology
PROC: 10E0XZZ Delivery of Products of Conception, External Approach (ICD-10-PCS; principal; 2020-12-18)
DX: O76 Abnormality in fetal heart rate and rhythm complicating labor and delivery (principal); Z37.0 Single live birth; O69.3XX0 Labor and delivery complicated by short cord, not applicable or unspecified; O99.344 Other mental disorders complicating childbirth; F41.1 Generalized anxiety disorder; Z3A.39 39 weeks gestation of pregnancy
CPT/HCPCS: 85025; 86850; 86900; 86901; 88307

== ENCOUNTER 2022-05-12 14:56 | Emergency (ER) | payer OTHER ==
[2022-05-12 15:53] VITALS: BP 118/81; PULSE 99; RESP 16; TEMP 97.4
[2022-05-12] MEDS ORDERED: ALPRAZolam 0.25 MG TAB PO STA (18:44)
--- NOTE | 2022-05-12 18:46 | ED ---
General Adult HPI - General Chief complaint: Anxiety Stated complaint: Anxiety/chest tightness Time Seen by Provider: 05/12/22 17:24 Source: patient Mode of arrival: ambulatory - History of Present Illness Initial comments: 26-year-old female presents to the emergency department reporting anxiety symptoms. States that for the past several weeks she has had episodes of palpitations throughout the day. They've that she will have intrusive thoughts and begin to think "worst-case scenario". She will have chest pressure and racing heart. She will eventually be able to calm herself down. She has been seen at [facility] for these complaints. They did give her a prescription for Xanax and states that she has been taking it as needed sparingly. She has subsequently run out of the medications. They did do a cardiac workup on her at the other facility. Everything has been negative. She is scheduled to have an appointment with her primary care on the however states that she can't wait any longer being untreated. She denies any concern for . No suicidal or homicidal ideations. No other alleviating, precipitating or modifying factors - Related Data Home Medications Medication Instructions Recorded Confirmed Multivitamins, Thera [Multivitamin 1 tab PO DAILY 10/05/17 12/18/20 (formulary)] Previous Rx's Medication Instructions Recorded Ibuprofen [Motrin] 600 mg PO Q6HR PRN #30 tab 12/19/20 Sertraline [Zoloft] 50 mg PO DAILY #15 tab 05/12/22 hydrOXYzine pamoate [Vistaril] 25 mg PO TID PRN #42 cap 05/12/22 Allergies Allergy/AdvReac Type Severity Reaction Status Date / Time [place] And Derivatives Allergy Rash/Hives Verified 05/12/22 15:53 Review of Systems ROS Statement: Those systems with pertinent positive or pertinent negative responses have been documented in the HPI. ROS Other: All systems not noted in ROS Statement are negative. Past Medical History Additional Past Medical History / Comment(s): blood disorder, ovarian cysts History of Any Multi-Drug Resistant Organisms: None Reported Past Surgical History: No Surgical Hx Reported Additional Past Surgical History / Comment(s): wisdom teeth Past Anesthesia/Blood Transfusion Reactions: No Reported Reaction Past Psychological History: Anxiety Smoking Status: Never smoker Past Alcohol Use History: Occasional, Rare Past Drug Use History: Marijuana, Methamphetamine - Past Family History Father Family Medical History: No Reported History General Exam General appearance: alert, in no apparent distress Head exam: Present: atraumatic, normocephalic, normal inspection Eye exam: Present: normal appearance, PERRL, EOMI. Absent: scleral icterus, conjunctival injection, periorbital swelling ENT exam: Present: normal exam, mucous membranes moist Neck exam: Present: normal inspection. Absent: tenderness, meningismus, lymphadenopathy Respiratory exam: Present: normal lung sounds bilaterally. Absent: respiratory distress, wheezes, rales, rhonchi, stridor Cardiovascular Exam: Present: regular rate, normal rhythm, normal heart sounds. Absent: systolic murmur, diastolic murmur, rubs, gallop, clicks GI/Abdominal exam: Present: soft, normal bowel sounds. Absent: distended, tenderness, guarding, rebound, rigid Extremities exam: Present: normal inspection, full ROM, normal capillary refill. Absent: tenderness, pedal edema, joint swelling, calf tenderness Back exam: Present: normal inspection Neurological exam: Present: alert, oriented X3, CN II-XII intact Psychiatric exam: Present: normal affect, anxious Skin exam: Present: warm, dry, intact, normal color. Absent: rash Course Vital Signs 05/12/22 15:50 Temperature 97.4 F L Pulse Rate 99 Respiratory 16 Rate Blood Pressure 118/81 O2 Sat by Pulse 100 Oximetry EKG Findings - EKG Comments: EKG Findings:: EKG demonstrates sinus rhythm with rate of 87. UT interval 150. QRS 72. QTC of 380. No acute ST segment elevations Medical Decision Making - Medical Decision Making Was pt. sent in by a medical professional or institution? no Did you speak to anyone other than the patient for history? no Did you review nursing and triage notes? yes and I agree Were old charts reviewed? attempted to obtain records from [facility] however patient wanted to leave before they were transmitted Differential Diagnosis? SVT, acute palpitations, WPW, thyroid disorder, drug use, , anxiety EKG interpreted by me (3pts min.)? yes X-rays interpreted by me (1pt min.)? no CT interpreted by me (1pt min.)? no U/S interpreted by me (1pt. min.)? no What testing was considered but not performed? (CT, X-rays, U/S, labs)? Why? lab studies, xray, echo - patient refused as she needed to get home to care for her kids What meds were considered but not given? Why? ativan - too risky for dependance Did you discuss the management of the patient with other professionals? yes, Dr. Calalhan gave recommends on how to treat suspected anxiety Did you reconcile home meds? yes Was smoking cessation discussed for >3mins.? no Was critical care preformed (if so, how long)? no Were there social determinants of health that impacted care today? How? (Homelessness, low income, unemployed, alcoholism, drug addiction, transportation, low edu. Level, literacy, decrease access to med. care, fdc, rehab)? lack of transportation and childcare has made it so patient has limited time to have her complaints evaluated Was there de-escalation of care discussed even if they declined? (Discuss DNR or withdrawal of care, Hospice)? no What co-morbidities impacted this encounter? (DM, HTN, Smoking, COPD, CAD, Cancer, CVA, Hep., AIDS, mental health diagnosis, sleep apnea, morbid obesity)? none Was patient admitted / discharged? Arrival patient is placed into room 2. A thorough history and physical exam was performed. I did recommend repeating the patient's cardiac workup however she states that she does not have much time due to having 2 children at home. She is requesting something for anxiety. I informed the patient that I do not want to place her on benzodiazepines as these medications are not safe. I did call and speak to Dr. Pau isabel. His recommendation is to put the patient on Lexapro 50 mg daily as well as Vistaril 3 times daily as needed for anxiety symptoms. I did discuss his regiment with the patient for which she was open to trying. She is informed that starting the medication she may have increase in suicidal ideations and therefore this is the case she needs to return to the emergency department. Patient understood this. She was given 1 dose of Xanax in the emergency department and discharged home in stable condition Undiagnosed new problem with uncertain prognosis? yes Drug Therapy requiring intensive monitoring for toxicity (Heparin, Nitro, Insulin, Cardizem)? no Were any procedures done? no Diagnosis/symptom? acute palpitations Acute, or Chronic, or Acute on Chronic? subacute Uncomplicated (without systemic symptoms) or Complicated (systemic symptoms)? complicated Side effects of treatment? sedation Exacerbation, Progression, or Severe Exacerbation] no Poses a threat to life or bodily function? no Disposition Clinical Impression: Palpitations Disposition: HOME SELF-CARE Condition: Stable Instructions (If sedation given, give patient instructions): Generalized Anxiety Disorder (ED) Additional Instructions: Please start taking the medications as they are directed. Follow up with one of the outpatient resources and return for any new or worsening symptoms Prescriptions: hydrOXYzine pamoate [Vistaril] 25 mg PO TID PRN #42 cap PRN Reason: Anxiety Sertraline [Zoloft] 50 mg PO DAILY #15 tab Is patient prescribed a controlled substance at d/c from ED?: No Referrals: None,Stated [Primary Care Provider] - 1-2 days Time of Disposition: 18:46
== END 2022-05-12 19:02 | disposition home or self-care (01) ==
LOC: EC 14:56
DX: R00.2 Palpitations (principal); F41.9 Anxiety disorder, unspecified; F12.90 Cannabis use, unspecified, uncomplicated; Z88.8 Allergy status to other drugs, medicaments and biological substances
CPT/HCPCS: 93005; 99284